=== PATIENT | female | born 1985 | race Caucasian/White ===

== ENCOUNTER 2022-09-30 13:53 | Outpatient (RCR) | payer OTHER, BC, SELFPAY ==
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
--- NOTE | 2022-10-27 14:01 | PTOPEVAL1 ---
Assessment and note entered by Anastacio Cooley Evaluation Information Assessment Status Progress Diagnosis lower back pain, neck pain, lumbago Onset 09/21/22 Subjective Information Pt. reports that she is feeling better since beginning therapy. She reports that her condition is about 50% improved. She continues to describe pain in the area of the neck and mid back. She states that she still has not done any agressive exercise, which she was capable of doing before her injury. she reports that her goal remains to be able to return to running and the gym. Assessment PT Clinical Summary Pt. has attended a total of 10 treatment sessions. She has improved her Oswestry score to 28% since beginning treatment. Note significant reduction in subjective pain reports. Her treatment thus far has consisted of modality care for pain reduction, therapuetic exercise focused on flexiblity and core stability, as well as manual techniques to improve spinal mobility and reduce pain. Despite her progress pain continues to remain and she has not transitioned back to her prior activity level. Continued skilled PT is indicated in order to assist the pt. in being able to transition back to her normal exercise and to continue to reduce pain. Plan of Care Interventions Electrical Stimulation,Hot Pack/Cold Pack,Manual Therapy,Neuro Re-education,Patient/Caregiver Educati,Therapeutic Activities,Therapeutic Exercise PT Services Indicated Yes Treatment Frequency and 1x/week x 3 visits Duration These treatments will address the objective and functional deficits as defined above. The patient will be advanced safely and appropriately in order for the patient to progress towards his/her prior level of function. Additional exercises will be introduced and as well as a comprehensive home exercise program upon discharge, if needed, ?to ensure carryover of functional gains achieved in the clinic. This treatment plan has been reviewed and agreement upon by the patient.
--- NOTE | 2022-11-19 16:48 | PTOPDC ---
Assessment and note entered by JT File, PT Evaluation Information Assessment Status Discharge Diagnosis lower back pain, neck pain, lumbago Onset 09/21/22 Subjective Information patient reports she continues to have increased pain in the lower back with sitting for a long time, especially in the car, and with situps. Reported Pain Level Pain Score 0,5: Self Report Assessment PT Clinical Summary mrs. garcia presents to skilled PT services for her 13th skilled PT visit. as of this date, her core strength is improved, but patient continues to have pain in the lower back. she is complicated by sitting in a car for 7+ hours over the weekend. she has returned to her daily workout regimen. she was educated today in continued HEP performance with focus on core stability, especially of the lumbar paraspinals. she will DC skilled PT at this time and continue with HEP independent at home. Plan of Care PT Services Indicated Yes
== END 2022-11-19 17:39 | disposition home or self-care (01) ==
LOC: CHSPT 13:53
DX: M54.2 Cervicalgia (principal); M54.9 Dorsalgia, unspecified
CPT/HCPCS: 97014; 97110; 97112; 97140; 97161; 97530; G0283

== ENCOUNTER 2022-12-25 13:54 | Outpatient (RCR) | payer BC, SELFPAY ==
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
--- NOTE | 2022-12-25 14:46 | OPREHPOC ---
Outpatient Therapy Plan of Care This is a Multidisciplinary Plan of Care that may contain components documented by all disciplines (PT, OT, and ST.) PT Problem 1 PT Problem #1 Knowledge Deficit PT Goal 1 Goal 1. independent and compliant with HEP Target Visit 4 PT Problem 2 PT Problem #2 Pain PT Goal 1 Goal 1. reduction of all pain and symptoms in the mid back to improve quality of life and return to all prior level functional activities Target Visit 8 PT Problem 3 PT Problem #3 Impaired Strength PT Goal 1 Goal 1. 5/5 bilateral LE strength 2. 4+/5 core strength upper and lower Target Visit 8 PT Problem 4 PT Problem #4 Impaired Functional Mobil PT Goal 1 Goal 1. patient to sit and ride in car for 2 hours or more without symptoms 2. patient to return to daily yoga and workouts without limitations 3. oswestry to diaplsy 0% functional deficits Target Visit 8
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
--- NOTE | 2023-04-21 16:37 | PCPTNOTE ---
Patient discharged at end of auth
== END 2023-01-15 23:59 | disposition home or self-care (01) ==
LOC: CHSPT 13:54
DX: M54.2 Cervicalgia (principal); V49.50XD Passenger injured in collision with unspecified motor vehicles in traffic accident, subsequent encounter; V89.0XXD Person injured in unspecified motor-vehicle accident, nontraffic, subsequent encounter
CPT/HCPCS: 97014; 97110; 97140; 97161; G0283

== ENCOUNTER 2023-02-14 09:00 | Outpatient (CLI) | payer BC, SELFPAY ==
--- NOTE | ~2023-02-14 | MR_ITS ---
EXAMINATION: MR lumbar spine wo con DATE: 02/14/2023 09:40 INDICATION: Lumbar back pain TECHNIQUE: Magnetic resonance imaging (MRI) of the lumbar spine was performed without intravenous con trast. Sequences included sagittal T2-weighted FSE, sagittal T2-weighted FS FSE, sagittal T1-weighted FSE, and axial T2-weighted FSE. COMPARISON: None FINDINGS: 9 degrees thoracolumbar dextrocurvature. Sagittal alignment is normal. Vertebral body heights are nor mal. Normal marrow signal. Transitional L5 segment which is sacralized on the right. Disc desiccatio n and mild disc height loss at L3-L4 and mild left-sided disc height loss at L1-L2. The conus medulla ris terminates at L1. There is normal signal in the caudal spinal cord. Paravertebral soft tissues ar e unremarkable. The following disc levels are specifically discussed: T12-L1: The disc does not extend beyond the endplate margin. There is no facet joint osteoarthritis. There is no neural foraminal stenosis. There is no central canal stenosis. L1-L2: Small left paracentral to foraminal zone disc protrusion. There is minimal bilateral facet zeyad nt osteoarthritis. There is mild left neural foraminal stenosis. There is no central canal stenosis. L2-L3: The disc does not extend beyond the endplate margin. There is normal bilateral facet joint ost eoarthritis. There is no neural foraminal stenosis. There is no central canal stenosis. L3-L4: Disc is bulging with annular fissure. There is mild right facet joint osteoarthritis. There is mild bilateral neural foraminal stenosis. There is mild central canal stenosis. L4-L5: Disc is bulging with annular fissure. There is mild bilateral facet joint osteoarthritis. Ther e is mild bilateral neural foraminal stenosis. There is mild central canal stenosis. L5-S1: The disc does not extend beyond the endplate margin. There is mild bilateral facet joint osteo arthritis. There is no neural foraminal stenosis. There is no central canal stenosis. IMPRESSION: 1. Mild thoracolumbar dextrocurvature with mild lumbar spondylosis. Reviewed, dictated and finalized at location A.
== END 2023-02-14 09:01 | disposition home or self-care (01) ==
DX: M47.896 Other spondylosis, lumbar region (principal)
CPT/HCPCS: 72148

== ENCOUNTER 2023-04-20 13:03 | Outpatient (RCR) | payer BC, SELFPAY ==
--- NOTE | 2023-04-20 14:13 | OPREHPOC ---
Outpatient Therapy Plan of Care This is a Multidisciplinary Plan of Care that may contain components documented by all disciplines (PT, OT, and ST.) PT Problem 1 PT Problem #1 Knowledge Deficit PT Goal 1 Goal 1. independent and compliant with HEP Target Visit 4 PT Problem 2 PT Problem #2 Impaired Range of Motion PT Goal 1 Goal 1. improve cervical rotation to 40 degrees each bilat 2. improve cervical sidebending to 70 degrees each bilat Target Visit 8 PT Problem 3 PT Problem #3 Impaired Strength PT Goal 1 Goal 1. improve UE strength to 4+/5 or better bilaterally 2. improve L hand resource recovery specialist strength to 65lbs or better Target Visit 8 PT Problem 4 PT Problem #4 Impaired Functional Mobil PT Goal 1 Goal 1. NDI to display less than 20% functional deficits 2. patient to return to sleeping without UE symptoms 3. patient to return to biking and exercise 5 days a week Target Visit 8 PT Problem 5 PT Problem #5 Pain PT Goal 1 Goal 1. patient to report elimination of all L UE symptoms. 2. decrease pain at worst in the neck and upper back to 3/10 or less Target Visit 8
--- NOTE | 2023-04-20 14:14 | PTOPEVAL1 ---
Assessment and note entered by JT File, PT Evaluation Information Assessment Status Evaluation Diagnosis cervical radiculopathy. Onset 04/07/23 Subjective Information patient reports she had some neck injections on this past thursday. she was told she needed therapy along with the injections. she reports she is sore where the shot went, but overall she does feel a bit better. she reports she has pain down the back of the L shoulder, and down the L arm to the fingers (thumb, index, and long). she reports the feels numbness, tingling, and pain down the whole arm to the fingers. she reports she is taking gabapentin and the tingling has calmed down a bit. she reports she is still unable to get back to working out and riding her bike. she reports she can tolerate a little bit of riding. she reports running is painful. Reported Pain Level Pain Score 5: Self Report Assessment PT Clinical Summary mrs. garcia presents to skilled PT services for evaluation and treatment of cervical radiculopathy affecting the L UE all the way to the hand. she presents with symptoms of tingling, numbness, pain from the neck into the upper L back along the scapula, and down the L arm to the hand at the thumb, index, and middle fingers. she also presents with L academic specialist weakness, and L UE weakness. she would benefit from continued skilled PT to address her objective/functional deficits and progress towards return to her prior level functional activities/quality of life. Plan of Care Interventions Electrical Stimulation,Hot Pack/Cold Pack,Manual Therapy PT Services Indicated Yes Treatment Frequency and 2x weekly for 8 visits Duration These treatments will address the objective and functional deficits as defined above. The patient will be advanced safely and appropriately in order for the patient to progress towards his/her prior level of function. Additional exercises will be introduced and as well as a comprehensive home exercise program upon discharge, if needed, ?to ensure carryover of functional gains achieved in the clinic. This treatment plan has been reviewed and agreement upon by the patient.
--- NOTE | 2023-05-13 14:48 | OPREHPOC ---
Outpatient Therapy Plan of Care This is a Multidisciplinary Plan of Care that may contain components documented by all disciplines (PT, OT, and ST.) PT Problem 1 PT Problem #1 Knowledge Deficit PT Goal 1 Goal 1. independent and compliant with HEP Target Visit 4 Progress Met PT Problem 2 PT Problem #2 Impaired Range of Motion PT Goal 1 Goal 1. improve cervical sidebending to 40 degrees each bilat. not met 2. improve cervical rotation to 70 degrees each bilat Target Visit 12 Progress Partially Met Comment progressing, continue PT Problem 3 PT Problem #3 Impaired Strength PT Goal 1 Goal 1. improve UE strength to 4+/5 or better bilaterally 2. improve L hand detention sergeant strength to 65lbs or better Target Visit 12 Progress Partially Met Comment progressing, continue PT Problem 4 PT Problem #4 Impaired Functional Mobil PT Goal 1 Goal 1. NDI to display less than 20% functional deficits 2. patient to return to sleeping without UE symptoms 3. patient to return to biking and exercise 5 days a week Target Visit 12 Comment continue PT Problem 5 PT Problem #5 Pain PT Goal 1 Goal 1. patient to report elimination of all L UE symptoms. 2. decrease pain at worst in the neck and upper back to 3/10 or less Target Visit 12 Comment continue
--- NOTE | 2023-05-13 14:48 | PTOPREEVAL ---
Assessment and note entered by JT File, PT Evaluation Information Assessment Status Evaluation Diagnosis cervical radiculopathy. Onset 04/07/23 Subjective Information patient reports the L neck and arm feel better when she is in therapy, but some time after therapy her symptoms come back. she reports she is compliant with her HEP at home. she reports she still feels weaker in the L arm, and that she favors the opposite UE. she reports folding laundry will wear out her arm. Reported Pain Level Pain Score 4: Self Report Assessment PT Clinical Summary mrs. garcia presents to skilled PT for her 8th skilled therapy visit this date for cervical radiculopathy. she presents with improved cervical sidebending rom, improve UE strength, and improved dip tube assembler machine strength. however, she still has radicular symptoms, especially with sleeping, and lack of full goals achievement. she has met HEP goal, and made progress/partial achievement of all other goals. she would benefit from continued skilled PT to achieve remaining goals for skilled PT and improve her quality of life/functional activity performance. Plan of Care Interventions Electrical Stimulation,Hot Pack/Cold Pack,Manual Therapy,Neuro Re-education,Patient/Caregiver Educati,Therapeutic Activities,Therapeutic Exercise PT Services Indicated Yes Treatment Frequency and 2x weekly for 4 more visits Duration These treatments will address the objective and functional deficits as defined above. The patient will be advanced safely and appropriately in order for the patient to progress towards his/her prior level of function. Additional exercises will be introduced and as well as a comprehensive home exercise program upon discharge, if needed, ?to ensure carryover of functional gains achieved in the clinic. This treatment plan has been reviewed and agreement upon by the patient.
--- NOTE | 2023-06-11 17:57 | OPREHPOC ---
Outpatient Therapy Plan of Care This is a Multidisciplinary Plan of Care that may contain components documented by all disciplines (PT, OT, and ST.) PT Problem 1 PT Problem #1 Knowledge Deficit PT Goal 1 Goal 1. independent and compliant with HEP Target Visit 4 Progress Met PT Problem 2 PT Problem #2 Impaired Range of Motion PT Goal 1 Goal 1. improve cervical sidebending to 40 degrees each bilat. not met 2. improve cervical rotation to 70 degrees each bilat Target Visit 16 Progress Partially Met PT Problem 3 PT Problem #3 Impaired Strength PT Goal 1 Goal 1. improve UE strength to 4+/5 or better bilaterally 2. improve L hand store mgr strength to 65lbs or better Target Visit 12 Progress Met PT Goal 2 Goal 1. improve L hand store mgr strength to 70lbs or better 2. improve L shoulder and UE strength to 5/5 overall Target Visit 16 PT Problem 4 PT Problem #4 Impaired Functional Mobil PT Goal 1 Goal 1. NDI to display less than 20% functional deficits 2. patient to return to sleeping without UE symptoms 3. patient to return to biking and exercise 5 days a week Target Visit 16 Progress Not Met PT Problem 5 PT Problem #5 Pain PT Goal 1 Goal 1. patient to report elimination of all L UE symptoms. 2. decrease pain at worst in the neck and upper back to 3/10 or less Target Visit 16 Progress Not Met
--- NOTE | 2023-06-11 17:57 | PTOPREEVAL ---
Assessment and note entered by JT File, PT Evaluation Information Assessment Status Re-evaluation Diagnosis cervical radiculopathy. Onset 04/07/23 Subjective Information patient reports the pain in her L shoulder and neck are increased today. she reports she does not recall any activities at home that would have caused the increase in her pain. she reports the symptoms will go down the L arm still at times. Assessment PT Clinical Summary mrs. garcia presents to skilled PT for her 12th skilled therapy visit today. she presents with a flare up in pain in the neck/L shoulder area. she was found to be tender to palpation at the superior angle of the L scapulae along the levator mm and upper trap mm. she displays progress towards cervical rom goals, and achievement of initial goals for L UE and flour worker strength. however, she continues to have not met her goals for reducetion of pain, L UE paresthesias, strength, sleeping, and rom. she would benefit from continued skilled PT to address her remaining pain and unmet goals to return to her prior level functional activity performance/quality of life. Plan of Care Interventions Electrical Stimulation,Hot Pack/Cold Pack,Manual Therapy,Neuro Re-education,Patient/Caregiver Educati,Therapeutic Activities,Therapeutic Exercise PT Services Indicated Yes Treatment Frequency and continue skilled PT 1x weekly for 3 more visits Duration These treatments will address the objective and functional deficits as defined above. The patient will be advanced safely and appropriately in order for the patient to progress towards his/her prior level of function. Additional exercises will be introduced and as well as a comprehensive home exercise program upon discharge, if needed, ?to ensure carryover of functional gains achieved in the clinic. This treatment plan has been reviewed and agreement upon by the patient.
--- NOTE | 2023-06-24 17:43 | OPREHPOC ---
Outpatient Therapy Plan of Care This is a Multidisciplinary Plan of Care that may contain components documented by all disciplines (PT, OT, and ST.) PT Problem 1 PT Problem #1 Knowledge Deficit PT Goal 1 Goal 1. independent and compliant with HEP Target Visit 4 Progress Met PT Problem 2 PT Problem #2 Impaired Range of Motion PT Goal 1 Goal 1. improve cervical sidebending to 40 degrees each bilat. not met 2. improve cervical rotation to 70 degrees each bilat. met R, not L Target Visit 16 Progress Not Met Comment . PT Problem 3 PT Problem #3 Impaired Strength PT Goal 1 Goal 1. improve UE strength to 4+/5 or better bilaterally 2. improve L hand summer nanny strength to 65lbs or better Target Visit 12 Progress Partially Met Comment . PT Goal 2 Goal 1. improve L hand summer nanny strength to 70lbs or better . not met 2. improve L shoulder and UE strength to 5/5 overall Target Visit 16 Progress Not Met PT Problem 4 PT Problem #4 Impaired Functional Mobil PT Goal 1 Goal 1. NDI to display less than 20% functional deficits 2. patient to return to sleeping without UE symptoms 3. patient to return to biking and exercise 5 days a week Target Visit 16 Progress Not Met Comment . PT Problem 5 PT Problem #5 Pain PT Goal 1 Goal 1. patient to report elimination of all L UE symptoms. 2. decrease pain at worst in the neck and upper back to 3/10 or less Target Visit 16 Progress Not Met Comment .
--- NOTE | 2023-06-24 17:45 | PTOPREEVAL ---
Assessment and note entered by [employer]T [employer], PT Evaluation Information Assessment Status Re-evaluation Diagnosis cervical radiculopathy. Onset 04/07/23 Subjective Information patient reports she feels a little better today. she reports her posterior neck/shoulder pain is a 3/10 today. she reports she still has trouble sleeping as she wakes up randomly with pain when laying on the L side. she reports she still has symptoms down the L UE to the L hand in the thumb, index, and middle fingers. Reported Pain Level Pain Score 3,3: Self Report Assessment PT Clinical Summary mrs. garcia presents to skilled PT for her 15th skilled therapy visit for cervical radiculopathy. she has continued to have pain in the neck/ posterior L shoulder, L UE paresthesias, and difficulty sleeping. she has symptoms in the thumb , index, and middle finger of the L hand. 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 she has noted no further achievement of goals this date, and at this time we will hold therapy to follow up with her MD. suggest patient have evaluation for L carpal tunnel symptoms, as well as, further investigation into neck and cervical radiculopathy . Plan of Care Interventions Electrical Stimulation,Hot Pack/Cold Pack,Manual Therapy,Neuro Re-education,Patient/Caregiver Educati,Therapeutic Activities,Therapeutic Exercise PT Services Indicated Yes Treatment Frequency and hold therapy to follow up with MD. Duration These treatments will address the objective and functional deficits as defined above. The patient will be advanced safely and appropriately in order for the patient to progress towards his/her prior level of function. Additional exercises will be introduced and as well as a comprehensive home exercise program upon discharge, if needed, ?to ensure carryover of functional gains achieved in the clinic. This treatment plan has been reviewed and agreement upon by the patient.
== END 2023-06-24 23:59 | disposition home or self-care (01) ==
LOC: CHSPT 13:03
DX: M47.22 Other spondylosis with radiculopathy, cervical region (principal); M54.2 Cervicalgia
CPT/HCPCS: 97012; 97014; 97110; 97112; 97140; 97150; 97161; G0283